=== PATIENT | female | born 1980 | race African-American/Black ===

== ENCOUNTER 2016-05-23 11:45 | Emergency (ER) | payer OTHER ==
[~2016-05-23] VITALS: Ht 157.5 cm; Wt 118.2 kg
[~2016-05-23 11:45] MED LIST: FLEXERIL10 MG PO; HYDROCODON-ACE1 EAC7 PO; IBUPROFEN800 MG PO; KLONOPIN0.5 M1 PO; LORTAB 5-325 M1 EACH PO; MOTRIN800 MG PO; OTOZIN EAR DROP10 ML BOTH EARS; OXYCODONE HCL5 MG PO; PERCOCET 10/1 TABLET PO; PERCOCET 5/31 TABLET PO; PREDNISONE20 MG PO; REGLAN10 MG PO; TOPAMAX100 MG PO; ZOFRAN4 MG PO
[2016-05-23 12:39] LABS: ADD MIUA? YES; BILIRUBIN NEGATIVE; BLOOD TRACE; COLOR YELLOW ((YELLOW)); GLUCOSE (STRIP) NEGATIVE; KETONES NEGATIVE; LEUKOCYTES NEGATIVE; NITRITE NEGATIVE; PROTEIN (STRIP) NEGATIVE; SPECIFIC GRAVITY 1.011 (1.000-1.030)
[2016-05-23 12:54] LABS: BACTERIA RARE; CASTS NONE SEEN /LPF; CRYSTALS NONE SEEN; EPITHELIAL CELLS RARE; MUCUS NONE SEEN; RED BLOOD CELLS 0-5 /HPF (0-5); UCUL ADDED? NO; WHITE BLOOD CELLS RARE /HPF (0-5)
[2016-05-23 12:56] LABS: HEMATOCRIT 37.2 % (36.0-46.0); MCHC 32.3 G/DL (30.0-36.0); MCV 77.5 FL (83-99); MEAN PLAT.VOLUME 11.7 uM^3 (9.5-12.4); PLATELET COUNT 187 K/uL (156-360); RBC DIS.WIDTH-CV 16.1 % (11.8-14.6); RBC DIS.WIDTH-SD 44.4 % (39-53); WHITE BLOOD COUNT 8.8 K/uL (4.1-10.2)
[2016-05-23 13:05] LABS: CHLORIDE 106 mEq/L (99-109); POTASSIUM 4.3 mEq/L (3.7-5.4); SODIUM 138 mEq/L (136-147)
[2016-05-23 13:07] LABS: GLUCOSE 101 mg/dL (70-99)
[2016-05-23 13:09] LABS: ANION GAP 8 MEQ/L (2-14)
[2016-05-23 13:11] LABS: GFR ESTIMATE (CALCULATED) > 59 mL/min/
[2016-05-23 13:12] LABS: UREA NITROGEN (BUN) 7 mg/dL (9-23)
[2016-05-23 13:21] LABS: QUANTITATIVE HCG < 4.0 MIU/ML
[2016-05-23] MEDS ORDERED: TRAMADOL HCL50 MG PO (14:33)
[2016-05-23 14:45] VITALS: BP 139/77
== END 2016-05-23 14:46 | disposition home or self-care (01) ==
LOC: EME 11:45
PROVIDERS: Nurse Practitioner Family
DX: R10.30 Lower abdominal pain, unspecified (principal); I10 Essential (primary) hypertension; F17.200 Nicotine dependence, unspecified, uncomplicated
CPT/HCPCS: 74177; 80048; 81003; 84702; 85027; 99281; 99285; J1885; J2270; J2405; J7030

== ENCOUNTER 2017-05-18 10:52 | Emergency (ER) | payer OTHER ==
[~2017-05-18] VITALS: Ht 154.9 cm; Wt 107.6 kg
[~2017-05-18 10:52] MED LIST changes: +TRAMADOL HCL50 MG PO
[2017-05-18 11:55] LABS: HEMATOCRIT 43.3 % (36.0-46.0); HEMOGLOBIN 13.9 G/DL (11.9-15.5); MCH 24.6 PG (29.0-34.0); MCHC 32.1 G/DL (30.0-36.0); MCV 76.6 FL (83-99); PLATELET COUNT 220 K/uL (156-360); RBC DIS.WIDTH-CV 15.6 % (11.8-14.6); RBC DIS.WIDTH-SD 43.2 % (39-53); RED BLOOD COUNT 5.65 M/uL (3.80-5.20); WHITE BLOOD COUNT 9.9 K/uL (4.1-10.2)
[2017-05-18 12:06] LABS: CHLORIDE 104 mEq/L (99-109); POTASSIUM 4.5 mEq/L (3.7-5.4); SODIUM 139 mEq/L (136-147)
[2017-05-18 12:08] LABS: GLUCOSE 86 mg/dL (70-99)
[2017-05-18 12:12] LABS: CREATININE 0.8 mg/dL (0.6-1.3); GFR ESTIMATE (CALCULATED) > 59 mL/min/; UREA NITROGEN (BUN) 15 mg/dL (9-23)
[2017-05-18 21:06] VITALS: BP 136/77
== END 2017-05-18 19:36 | disposition home or self-care (01) ==
LOC: EME 10:52
PROVIDERS: Physician Assistant
DX: R42 Dizziness and giddiness (principal); R11.2 Nausea with vomiting, unspecified; Z98.890 Other specified postprocedural states; Z98.84 Bariatric surgery status; F41.9 Anxiety disorder, unspecified; E86.0 Dehydration; R06.02 Shortness of breath; Z90.49 Acquired absence of other specified parts of digestive tract; Z87.891 Personal history of nicotine dependence
CPT/HCPCS: 71046; 74177; 80048; 85027; 85379; 90839; 99281; 99285; J7120

== ENCOUNTER 2017-12-26 17:57 | Observation (INO) | payer OTHER ==
[~2017-12-26] VITALS: Ht 152.4 cm; Wt 81.4 kg
[2017-12-26 18:55] LABS: HEMATOCRIT 32.1 % (36.0-46.0); HEMOGLOBIN 10.5 G/DL (11.9-15.5); MCHC 32.7 G/DL (30.0-36.0); MCV 73.3 FL (83-99); PLATELET COUNT 205 K/uL (156-360); RBC DIS.WIDTH-CV 15.9 % (11.8-14.6); RBC DIS.WIDTH-SD 41.7 % (39-53); RED BLOOD COUNT 4.38 M/uL (3.80-5.20)
[2017-12-26 19:11] LABS: ALBUMIN 3.9 g/dL (3.2-4.8); CHLORIDE 108 mEq/L (99-109); POTASSIUM 3.5 mEq/L (3.7-5.4); SODIUM 142 mEq/L (136-147)
[2017-12-26 19:13] LABS: GLUCOSE 89 mg/dL (70-99)
[2017-12-26 19:14] LABS: TOTAL PROTEIN 6.4 g/dL (6.4-8.3)
[2017-12-26 19:15] LABS: TOTAL BILIRUBIN 0.3 mg/dL (0.0-1.0)
[2017-12-26 19:17] LABS: ALKALINE PHOSPHATASE 64 IU/L (3-129); CREATININE 0.7 mg/dL (0.6-1.3); GFR ESTIMATE (CALCULATED) > 59 mL/min/
[2017-12-26 19:18] LABS: UREA NITROGEN (BUN) 10 mg/dL (9-23)
[2017-12-26 19:19] LABS: AST (GOT) 13 IU/L (2-34)
[2017-12-26 19:20] LABS: ALT (GPT) 11 IU/L (3-49)
[2017-12-26 19:30] LABS: APPEARANCE CLEAR ((CLEAR)); BILIRUBIN NEGATIVE; BLOOD MODERATE; COLOR STRAW ((YELLOW)); GLUCOSE (STRIP) NEGATIVE; KETONES NEGATIVE; LEUKOCYTES NEGATIVE; NITRITE NEGATIVE; PROTEIN (STRIP) NEGATIVE; SPECIFIC GRAVITY 1.009 (1.000-1.030); UROBILINOGEN 0.2 MG/DL (0.2-1.0)
[2017-12-26 19:49] LABS: BACTERIA NONE SEEN /HPF; EPITHELIAL CELLS RARE /HPF; MUCUS NONE SEEN /LPF; UCUL ADDED? NO; WHITE BLOOD CELLS 0-5 /HPF (0-5)
[2017-12-26] MEDS ORDERED: DEBLITANE0.35 MG PO (21:24)
[2017-12-26 22:32] VITALS: BP 134/82
[2017-12-26 22:43] LABS: MAGNESIUM 2.2 mg/dL (1.3-2.7)
[2017-12-26 23:15] LABS: IRON 12 MCG/DL (35-150); TRANSFERRIN (TIBC) 292.1 mg/dL (215-380); TRANSFERRIN SATUR. 4 % (20-55)
[2017-12-27 04:04] VITALS: BP 98/69
[2017-12-27 05:28] LABS: BASOPHIL (%) 0.5 % (0-1); EOSINOPHIL (%) 4.5 % (0-5); EOSINOPHIL COUNT 0.3 K/uL (0-0.3); HEMATOCRIT 30.2 % (36.0-46.0); HEMOGLOBIN 9.6 G/DL (11.9-15.5); IMMATURE GRANULOCYTE (%) 0.3 % (0.0-0.7); LYMPHOCYTE (%) 39.6 % (15-42); MCH 23.9 PG (29.0-34.0); MCHC 31.8 G/DL (30.0-36.0); MCV 75.1 FL (83-99); MONOCYTE (%) 6.2 % (3-12); MONOCYTE COUNT 0.5 K/uL (0-0.8); NEUTROPHIL (%) 48.9 % (45-76); NEUTROPHIL COUNT 3.7 K/uL (1.8-6.4); PLATELET COUNT 186 K/uL (156-360); RBC DIS.WIDTH-SD 43.8 % (39-53); RED BLOOD COUNT 4.02 M/uL (3.80-5.20); WHITE BLOOD COUNT 7.6 K/uL (4.1-10.2)
[2017-12-27 05:47] LABS: CHLORIDE 109 MEQ/L (99-109); CREATININE 0.6 MG/DL (0.6-1.3); GFR ESTIMATE (CALCULATED) > 59 mL/min/; GLUCOSE 83 mg/dL (70-99); SODIUM 143 MEQ/L (136-147); UREA NITROGEN (BUN) 6 mg/dL (9-23)
[2017-12-27 06:11] LABS: POTASSIUM 4.3 MEQ/L (3.7-5.4)
[2017-12-27 07:50] VITALS: BP 111/56
[2017-12-27 08:49] LABS: FERRITIN 10 NG/ML (10-291)
[2017-12-27 11:32] VITALS: BP 133/78
[2017-12-27] MEDS ORDERED: FLAGYL500 MG PO (14:19)
[2017-12-27] MEDS ORDERED: NICOTINE PATCH1 EAC1 TD (14:19)
[2017-12-27] MEDS ORDERED: CIPRO500 MG PO (14:19)
== END 2017-12-27 17:55 | disposition home or self-care (01) ==
LOC: EME 17:57 → EDOF 21:36 → 4SOUTH 21:36 → EDOF 21:36 → ENRESERV 21:42 → 4SOUTH 22:09
PROVIDERS: Internal Medicine; Physician Assistant
DX: K52.9 Noninfective gastroenteritis and colitis, unspecified (principal); F41.9 Anxiety disorder, unspecified; F17.200 Nicotine dependence, unspecified, uncomplicated; D64.9 Anemia, unspecified; Z98.84 Bariatric surgery status; K21.9 Gastro-esophageal reflux disease without esophagitis; I10 Essential (primary) hypertension; G43.909 Migraine, unspecified, not intractable, without status migrainosus; F31.9 Bipolar disorder, unspecified; E87.6 Hypokalemia; Z91.19 Patient's noncompliance with other medical treatment and regimen; Z90.49 Acquired absence of other specified parts of digestive tract
CPT/HCPCS: 74018; 74177; 80048; 80053; 81003; 82607; 82728; 83540; 83735; 84466; 85025; 85027; 99281; 99285; G0378; J0744; J1644; J2270; J7030; S0028; S0030

== ENCOUNTER 2018-01-13 18:55 | Emergency (ER) | payer OTHER ==
[~2018-01-13] VITALS: Ht 152.4 cm; Wt 77.2 kg
[~2018-01-13 18:55] MED LIST changes: +CIPRO500 MG PO; +DEBLITANE0.35 MG PO; +FLAGYL500 MG PO; +NICOTINE PATCH1 EAC1 TD
[2018-01-13 19:51] LABS: HEMATOCRIT 35.2 % (36.0-46.0); HEMOGLOBIN 11.3 G/DL (11.9-15.5); MCH 23.4 PG (29.0-34.0); MCHC 32.1 G/DL (30.0-36.0); MCV 72.9 FL (83-99); PLATELET COUNT 202 K/uL (156-360); RBC DIS.WIDTH-CV 16.3 % (11.8-14.6); RBC DIS.WIDTH-SD 42.1 % (39-53); RED BLOOD COUNT 4.83 M/uL (3.80-5.20); WHITE BLOOD COUNT 10.1 K/uL (4.1-10.2)
[2018-01-13 19:57] LABS: CHLORIDE 107 mEq/L (99-109); POTASSIUM 4.1 mEq/L (3.7-5.4); SODIUM 139 mEq/L (136-147)
[2018-01-13 19:59] LABS: GLUCOSE 84 mg/dL (70-99)
[2018-01-13 20:03] LABS: CREATININE 0.7 mg/dL (0.6-1.3); GFR ESTIMATE (CALCULATED) > 59 mL/min/
[2018-01-13 20:04] LABS: UREA NITROGEN (BUN) 8 mg/dL (9-23)
[2018-01-13 20:12] LABS: TROP-I INTERPRETATION NEGATIVE; TROPONIN-I < 0.01 ng/mL (0.0-0.30)
[2018-01-13 20:44] LABS: ALBUMIN 4.1 g/dL (3.2-4.8)
[2018-01-13 20:47] LABS: TOTAL PROTEIN 6.8 g/dL (6.4-8.3)
[2018-01-13 20:49] LABS: TOTAL BILIRUBIN 0.4 mg/dL (0.0-1.0)
[2018-01-13 20:50] LABS: ALKALINE PHOSPHATASE 63 IU/L (3-129)
[2018-01-13 20:52] LABS: AST (GOT) 14 IU/L (2-34)
[2018-01-13 20:53] LABS: ALT (GPT) 12 IU/L (3-49); DIRECT BILIRUBIN 0.2 mg/dL (0.0-0.3)
[2018-01-13 20:54] LABS: LIPASE 15 U/L (1.0-51.0)
[2018-01-13] MEDS ORDERED: BENTYL20 MG PO (23:34)
[2018-01-13 23:45] VITALS: BP 145/84
[2018-01-14 00:06] LABS: TROP-I INTERPRETATION NEGATIVE; TROPONIN-I < 0.01 ng/mL (0.0-0.30)
== END 2018-01-13 23:46 | disposition home or self-care (01) ==
LOC: EME 18:55 → RME 18:55
PROVIDERS: Nurse Practitioner Family
DX: R10.13 Epigastric pain (principal); R07.9 Chest pain, unspecified; D64.9 Anemia, unspecified; I10 Essential (primary) hypertension; F17.200 Nicotine dependence, unspecified, uncomplicated; F41.9 Anxiety disorder, unspecified; F32.9 Major depressive disorder, single episode, unspecified; K21.9 Gastro-esophageal reflux disease without esophagitis; Z98.84 Bariatric surgery status
CPT/HCPCS: 71046; 74019; 74177; 80048; 80076; 83690; 84484; 85027; 93005; 99281; 99285; J7030